=== PATIENT | female | born 1935 | race Two or more races ===

== ENCOUNTER → 2016-06-28 | Outpatient (CLI) | payer MEDICARE ==
[~2016-06-28] MED LIST: ALEN35TA6 PO; ERGO500012 PO; HYDR-963 PO; LEVO25TA4 PO
--- NOTE | 2016-06-28 17:22 | RAD ---
PROCEDURE MRI of the lumbar spine without contrast 06/28/2016 HISTORY Low back pain. History of kyphoplasty 7 months ago. Bilateral leg radiculopathy. TECHNIQUE Unenhanced T1 weighted and T2 weighted sagittal and axial and inversion recovery sagittal images of the lumbar spine were obtained. FINDINGS No previous imaging studies are available for comparison. Minimal S-shaped curvature of the thoracolumbar spine is seen. The patient is status post kyphoplasty type procedure for an old compression fracture involving the L2 vertebral body. Degenerative signal changes are seen involving all of the discs of the lumbar spine. Degenerative signal changes are seen within the marrow surrounding these discs. An acute compression fracture is seen involving the superior endplate of the L4 vertebral body. This vertebral body has lost approximately 10 percent of its height, centrally. No retropulsion of bone fragments into the central spinal canal is seen. No additional compression fracture of the lumbar vertebrae is seen. The conus medullaris is normal in morphology, position, and signal characteristics. The changes of degenerative disc disease are seen throughout the lumbar disc spaces. These consist of mild to moderate generalized disc bulges and degenerative changes involving the facet joints along with mild to moderate ligamentum flavum hypertrophy. These findings when combined result in moderate to severe central spinal canal stenosis at L4-5. Mild central spinal canal stenosis is seen at L5-S1. Mild to moderate left greater than right neural foraminal stenosis is seen at L5-S1. IMPRESSION 1. An acute compression fracture is seen involving the superior endplate of the L4 vertebral body. No retropulsion of bone fragments into the central spinal canal is seen. 2. The changes of degenerative disc disease are seen involving the lumbar spine. These findings result in moderate to severe central spinal canal stenosis at L4-5. Mild central spinal canal stenosis is seen at L5-S1. Mild to moderate left greater than right neural foraminal stenosis is seen at L5-S1. Electronically signed by: Tyler Wilkes MD (Jun 28, 2016 17:21:18)
== END | disposition home or self-care (01) ==
LOC: MRI 15:02
PROVIDERS: ATTEND Family Medicine
DX: M51.36 Other intervertebral disc degeneration, lumbar region (principal); M48.06 Spinal stenosis, lumbar region; M48.56XA Collapsed vertebra, not elsewhere classified, lumbar region, initial encounter for fracture
CPT/HCPCS: 72148

== ENCOUNTER → 2017-01-05 | Outpatient (CLI) | payer MEDICARE ==
[2016-07-01 11:00] VITALS: BP 116/70
[~2017-01-05] MED LIST changes: +CYCL10TA2 PO; -ERGO500012 PO; +ERGO500027 PO; +IOHEXOL 180 MG/ML 10 ML VIAL. ONE; +MELO15TA6 PO; +methylPREDNISolone ACETATE 40 MG/ML VIAL. ONE; +methylPREDNISolone ACETATE 80 MG/ML VIAL. ONE
== END | disposition home or self-care (01) ==
LOC: PNCL 09:49
PROVIDERS: ATTEND Anesthesiology
DX: M51.16 Intervertebral disc disorders with radiculopathy, lumbar region (principal); M48.06 Spinal stenosis, lumbar region; E03.9 Hypothyroidism, unspecified; Z98.51 Tubal ligation status; Z87.39 Personal history of other diseases of the musculoskeletal system and connective tissue; Z86.39 Personal history of other endocrine, nutritional and metabolic disease; Z88.0 Allergy status to penicillin
CPT/HCPCS: 62323; J1030; J1040

== ENCOUNTER → 2017-04-05 | Outpatient (CLI) | payer MEDICARE ==
[2016-07-01 11:00] VITALS: BP 116/70
--- NOTE | 2017-04-05 10:53 | PAIN ---
DATE OF SERVICE: 04/05/2017 PROGRESS NOTE FOR PAIN CLINIC DIAGNOSES: Lumbar radiculopathy with lumbar spinal stenosis and lumbar degenerative disk disease with a compression fracture at L4. HISTORY OF PRESENT ILLNESS: The patient is an 81-year-old female who returns for followup status post lumbar epidural steroid injections x 2. The patient with about 50% improvement overall in the low back and left lower extremity pain. Last visit was 01/05/2017 and the patient did very well after this and also had a kyphoplasty at L4, which was helpful as well but the pain is much improved. She reports getting in and out of the car, walking and changing positions, standing and climbing stairs is better. The patient reports her pain is a 9 on a scale of 10 at its worst, can be as high as a 10 occasionally, about 1 on a scale of 10 today. The patient reports much better with sitting or lying down, does not awaken her from sleep at night. She is doing very well with this and only with standing and walking, she gets pain in the left low back and to the lower extremities was previously. The patient reports it can be constant and unbearable but generally has been much better after her last injection over the past few months. The patient reports no new motor or sensory deficits, no new bowel or bladder incontinence or other complaints. PHYSICAL EXAMINATION: VITAL SIGNS: Today, the patient's blood pressure is 132/91, pulse 69, respirations 18, temperature is 97.8 degrees Fahrenheit, height is 5 feet 2 inches and weight is 151 pounds. GENERAL: The patient is awake, alert, oriented, appropriate and very pleasant demeanor. The patient accompanied by her daughter who served as a bath mix operator for [place] to [place] and vice versa. The patient reports no other complaints. HEENT: Head shows normocephalic and atraumatic. Extraocular movements are intact and symmetrical. Oral cavity, mucous membranes are moist and pink. Dentition is intact. NECK: Shows anterior throat supple without palpable lymphadenopathy noted. Swallow reflex is symmetrical. CHEST: Shows normal on inspection. Breath sounds are clear to auscultation bilaterally. HEART: Shows S1 and S2 clear. ABDOMEN: Soft, nontender and nondistended. No palpable organomegaly. No rebound or guarding demonstrated. BACK: The patient's back shows spine grossly midline. Slight exaggeration of thoracic kyphosis and some mild flattening of lumbar lordotic curvature. Lumbar paraspinous muscle shows symmetrical inspection. No asymmetry and only mildly tender with palpation diffusely throughout. No tenderness over the sacrum or sacroiliac regions. The patient has some tenderness over the left lateral and posterior gluteus, very firm rope-like musculature consistent with trigger point areas of musculature in the gluteus muscle itself but without radiation. Lower extremities show deep tendon reflexes at 2+ in the patellar and 1+ tendo calcaneus tendons. Motor exam is strong with 5/5 dorsiflexion, extension, quadriceps and hamstring flexion and equal. Peripheral pulses are 1+ without edema. Options were discussed with the patient and the patient's daughter and the patient's old chart was reviewed as her current medication regimen updated. Current review of systems updated today as well and we will proceed with a third in series of lumbar epidural steroid injection with fluoroscopic guidance. Risks were again discussed including, but not limited to bleeding, infection, possibility of epidural hematoma, subsequent neurologic compromise, dural puncture, headaches, spinal cord and/or nerve damage, side effects of steroid medication and poor results regarding pain control. The patient understands and wishes to proceed. The patient will return to clinic in approximately 2 weeks for followup. She was counseled to return appointment, activity level and side effects to be aware of. Also, physical therapy will be ordered for the patient to work on strengthening and stretching exercises considerations as well as myofascial release. DIAGNOSIS: Lumbar radiculopathy with lumbar spinal stenosis and lumbar degenerative disk disease. PROCEDURE: Lumbar epidural steroid injection in translaminar approach at the L4-L5 level using C-arm fluoroscopic guidance under sterile prep and drape using local anesthetic. Medication injected is total of 120 mg Depo-Medrol plus 10 mL of preservative-free normal saline, 2 mL of Isovue for contrast. Condition at discharge is stable. The patient tolerated procedure well and had no complications. SHANIQUA AN MD DR: ALISE/ruy JOB#: [id number] / [id number]
== END | disposition home or self-care (01) ==
LOC: PNCL 08:08
PROVIDERS: ATTEND Anesthesiology
DX: M51.16 Intervertebral disc disorders with radiculopathy, lumbar region (principal); S32.049A Unspecified fracture of fourth lumbar vertebra, initial encounter for closed fracture; X58.XXXA Exposure to other specified factors, initial encounter; Y93.89 Activity, other specified; Y92.89 Other specified places as the place of occurrence of the external cause; Y99.8 Other external cause status; E03.9 Hypothyroidism, unspecified; Z87.39 Personal history of other diseases of the musculoskeletal system and connective tissue; Z86.39 Personal history of other endocrine, nutritional and metabolic disease; Z88.0 Allergy status to penicillin
CPT/HCPCS: 62323; J1030; J1040

== ENCOUNTER → 2017-11-10 | Outpatient (CLI) | payer MEDICARE ==
[~2017-11-10] MED LIST changes: -ALEN35TA6 PO; -CYCL10TA2 PO; -ERGO500027 PO; -HYDR-963 PO; +IOHEXOL 180 MG/ML 10 ML VIAL.; -IOHEXOL 180 MG/ML 10 ML VIAL. ONE; -LEVO25TA4 PO; -MELO15TA6 PO; +methylPREDNISolone ACETATE 40 MG/ML VIAL.; -methylPREDNISolone ACETATE 40 MG/ML VIAL. ONE; +methylPREDNISolone ACETATE 80 MG/ML VIAL.; -methylPREDNISolone ACETATE 80 MG/ML VIAL. ONE
== END | disposition home or self-care (01) ==
LOC: PNCL 09:29
DX: M51.16 Intervertebral disc disorders with radiculopathy, lumbar region (principal); M48.061 Spinal stenosis, lumbar region without neurogenic claudication; K21.9 Gastro-esophageal reflux disease without esophagitis; E03.9 Hypothyroidism, unspecified; Z88.0 Allergy status to penicillin; Z90.49 Acquired absence of other specified parts of digestive tract; Z98.51 Tubal ligation status; Z98.890 Other specified postprocedural states
CPT/HCPCS: 62323; J1030; J1040; Q9965

== ENCOUNTER → 2018-07-02 | Outpatient (CLI) | payer MEDICARE ==
[2016-07-01 11:00] VITALS: BP 116/70
[~2018-07-02] MED LIST changes: +ALEN35TA6 PO; +ASPI-630 PO; +ATOR40TA59 PO; +CLOP75TA PO; +CYCL10TA2 PO; +ERGO500027 PO; +FAMO20TA5 PO; +FURO20TA3 PO; +HYDR-3135 PO; -IOHEXOL 180 MG/ML 10 ML VIAL.; +ISOS60TA2 PO; +LEVO100T5 PO; +LEVO25TA4 PO; +LOSA-73 PO; +MELO15TA6 PO; +METO-239 PO; -methylPREDNISolone ACETATE 40 MG/ML VIAL.; -methylPREDNISolone ACETATE 80 MG/ML VIAL.
--- NOTE | 2018-07-02 16:56 | PAIN ---
DATE OF SERVICE: 07/02/2018 PROGRESS NOTE FOR PAIN CLINIC DIAGNOSES: Lumbar radiculopathy with lumbar degenerative disk disease, lumbar spinal stenosis. HISTORY OF PRESENT ILLNESS: The patient an 83-year-old female who returns for followup status post previous lumbar epidural steroid injection, last seen 10/31/2017. The patient did very well with near 100% improvement for about almost 5 months after the injection. The patient reports that she was increased distance walking, doing household activities with greater ease and comfort, traveling. 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 She has now been placed on Plavix. She is now back home with her daughter, seeing her vessel builder later today locally. The patient has not seen a vessel builder in the [place] since the incident and has been since put on Plavix. The patient reports she has felt fairly well, has no chest pain, but the pain in her low back and left leg is significantly increased. She fell while she was in [place] and exacerbated the pain as well and a radicular component in the left lower extremity and as well across the low back. The patient reports the pain is 10 on a scale of 10 at its worst, on average and 0 at its least, but is only with sitting, does not awaken her from sleep every night, but occasionally does. The patient is describing the pain as a tight and tingling into the left foot, constant, becoming more severe, more unbearable especially with walking, posterior gluteus, posterior thigh, posterior calf as well as the lateral thigh and anterior thigh on the left side. The patient reports no new motor or sensory deficits, no new bowel or bladder incontinence, but significant findings of a recent stent placed and Plavix therapy. PHYSICAL EXAMINATION: VITAL SIGNS: The patient's blood pressure 114/59, pulse 69, respirations are 16, temperature is 98.4 degrees Fahrenheit, weight is 149 pounds. GENERAL: The patient is awake, alert, oriented, appropriate, very pleasant demeanor. The patient is accompanied by her daughter, who serves as overedge sewer. HEENT: Shows normocephalic, atraumatic. Extraocular movements are intact and symmetrical. Oral cavity: Mucous membranes are moist and pink. Dentition is intact. NECK: Shows anterior throat supple without palpable lymphadenopathy noted. Swallow reflex symmetrical. CHEST: Shows normal with inspection. Breath sounds clear to auscultation bilaterally. HEART: Shows S1, S2 clear. No murmurs auscultated. ABDOMEN: Soft, obese, nontender, nondistended. No palpable organomegaly is noted. No rebound or guarding demonstrated. BACK: Shows spine grossly in the midline, slightly increased thoracic kyphosis and minor flattening of lumbar lordotic curvature. Lumbar paraspinous muscle shows symmetrical on inspection. On palpation, there is some moderate tenderness in the low lumbar distribution, but only diffusely bilaterally without radiation, without trigger points. The patient has good rotational motion of lumbar spine both laterally as well as extension and flexion without significant pain reported. EXTREMITIES: Lower extremities show deep tendon reflexes 2+ in the patellar, 1+ tendo calcaneus tendons. Motor exam is strong with 5/5 dorsiflexion, extension, quadriceps and hamstring flexion and equal. Peripheral pulses are 1+ posterior tibia. No peripheral edema is noted. PLAN: Options were discussed with the patient and the patient's daughter. The patient's old chart was reviewed as her current medication regimen updated. Current review of systems updated today as well. We will have the patient follow up with the vessel builder here and evaluate for the acceptability of holding the Plavix for 7 days prior to a lumbar epidural steroid injection, discussed with the patient and her daughter that this may not be likely as she is only placed on it about a month ago. They will see the vessel builder later today as noted. We will meantime try tramadol 50 mg every 4-6 hours. The patient was given instruction as well as side effects to be aware of with the medication. We will follow up after Cardiology has had a chance to assess the patient's cardiac status. SHANIQUA AN MD DR: ALISE/ruy JOB#: [id number] / [id number]
== END | disposition home or self-care (01) ==
LOC: PNCL 09:01
PROVIDERS: ATTEND Anesthesiology
DX: M51.16 Intervertebral disc disorders with radiculopathy, lumbar region (principal); M48.061 Spinal stenosis, lumbar region without neurogenic claudication
CPT/HCPCS: G0463

== ENCOUNTER → 2019-11-19 | Outpatient (CLI) | payer MEDICARE ==
[2016-07-01 11:00] VITALS: BP 116/70
[~2019-11-19] MED LIST changes: +ALEN35TA11 PO; -ALEN35TA6 PO; +DENO60DI SQ; +GABA-585 PO; +HYDR-2761 PO; +IOHEXOL 180 MG/ML 10 ML VIAL. ONE; +MULT-658 PO; +RANO500T2 PO; +SPIR25TA5 PO; +TICA90TA PO; +methylPREDNISolone ACETATE 40 MG/ML VIAL. ONE; +methylPREDNISolone ACETATE 80 MG/ML VIAL. ONE
--- NOTE | 2019-11-19 09:46 | PAIN ---
DATE OF SERVICE: 11/19/2019 PROGRESS NOTE FOR PAIN CLINIC DIAGNOSES: Lumbar radiculopathy with lumbar degenerative disk disease, lumbar spinal stenosis. HISTORY OF PRESENT ILLNESS: The patient is an 84-year-old female who returns for followup, last seen 06/2018. The patient had epidural steroid injection at that time. She was on Plavix actually at that time and she has been off the Plavix now, has been started on Brilinta and she has been off that now for 7 days as cleared by her prescribing physician. The patient did very well after epidural steroid injections in the past, near 100% improvement, but has been almost 2 years since she had the injection. The patient reports still significant pain now returning over the past 6 months or so in the low back and especially in the right lower extremity, posterior gluteus, lateral thigh, anterior thigh, medial thigh as well as posterior calf on the right side. The patient reports it is worse with walking, standing, changing positions, rates a 10 on a scale of 10 at all times, average, least and worst, is a 10 today. The patient reports it is sharp, tight, tingling, cramping in the right leg with becoming more constant and severe. The patient did have an MRI scan earlier this month, 10/26/2019 showing severe, worsened central stenosis at L4-L5 and severe new central stenosis at L5-S1 with dorsal arthritis at L4-L5 and L5-S1 as well. The patient reports the pain is worse with walking, standing, changing positions, getting in and out of bed, does not awaken her from sleep over the past few months. The patient reports no new motor or sensory deficits, no new bowel or bladder incontinence, still significant pain in the low back and right lower extremity. PHYSICAL EXAMINATION: VITAL SIGNS: The patient's blood pressure 114/54, pulse 67, respirations 16, temperature 98.0 degrees Fahrenheit, weight is 144 pounds. GENERAL: The patient is awake, alert, oriented, very appropriate demeanor. The patient is accompanied by her daughter who acts as a automotive parts interpreter for Martiniquais to Khmer and vice versa. HEENT: Shows normocephalic, atraumatic. Extraocular movements are intact and symmetrical. Oral cavity: Mucous membranes moist and pink. Dentition is intact. NECK: Shows anterior throat is supple without palpable lymphadenopathy noted. Swallow reflex symmetrical. CHEST: Shows normal on inspection. Breath sounds clear to auscultation bilaterally. HEART: Shows S1, S2 clear. No murmurs auscultated. ABDOMEN: Soft, nontender, nondistended. No palpable organomegaly is noted. No rebound or guarding demonstrated. BACK: Shows spine grossly in the midline. Slight exaggeration of thoracic kyphosis, some minor flattening of the low lumbar distribution is noted as well. The patient has good rotational motion of lumbar spine, both laterally as well as extension and flexion without significant increase in pain. EXTREMITIES: The patient's lower extremities show deep tendon reflexes at 2+ in the patellar, 1+ tendo-calcaneus tendons. Motor exam is strong with dorsiflexion and extension, 5/5. Quadriceps and hamstring flexion as well. Peripheral pulses are 1+ posterior tibia. No peripheral edema is noted bilaterally. PLAN: Options were discussed with the patient and the patient's daughter including conservative medical managements, physical therapies and interventional techniques. She would like to pursue interventional techniques as she has done very well with these in the past. We described a lumbar epidural steroid injection using description as well as anatomical models to describe the procedure. Risks were discussed including but not limited to bleeding, infection, possibility of epidural hematoma, subsequent neurological compromise, dural puncture, headaches, spinal cord and/or nerve damage, side effects of steroid medication and poor results regarding pain control. The patient understands and wished to proceed. The patient will return to clinic in approximately 3 weeks for followup. She was counseled on return appointment, activity level and side effects to be aware of. We will restart her Brilinta tomorrow 11/19 and we will have her follow up as scheduled. DIAGNOSES: Lumbar radiculopathy with lumbar degenerative disk disease, lumbar spinal stenosis. PROCEDURE: Lumbar epidural steroid injection, translaminar approach at the L4-L5 level using C-arm fluoroscopic guidance under sterile prep and drape using local anesthetic. MEDICATION INJECTED: A total of 120 mg Depo-Medrol plus 10 mL of preservative-free normal saline and 2 mL of contrast. CONDITION AT DISCHARGE: Stable. The patient tolerated procedure well, had no complications. SHANIQUA AN MD DR: ALISE/ruy JOB#: [id number] / [id number]
== END | disposition home or self-care (01) ==
LOC: PNCL 08:23
PROVIDERS: ATTEND Anesthesiology
DX: M51.16 Intervertebral disc disorders with radiculopathy, lumbar region (principal); M48.061 Spinal stenosis, lumbar region without neurogenic claudication; Z98.890 Other specified postprocedural states; Z88.0 Allergy status to penicillin
CPT/HCPCS: 62323; J1030; J1040; Q9965

== ENCOUNTER → 2019-12-10 | Outpatient (CLI) | payer MEDICARE ==
[2016-07-01 11:00] VITALS: BP 116/70
--- NOTE | 2019-12-10 09:50 | PAIN ---
DATE OF SERVICE: 12/10/2019 PROGRESS NOTE FOR PAIN CLINIC DIAGNOSES: Lumbar radiculopathy with lumbar degenerative disk disease, lumbar spinal stenosis. HISTORY OF PRESENT ILLNESS: The patient is an 84-year-old female who returns for followup status post lumbar epidural steroid injection x 1. The patient reports approximately 90% improvement, but the pain is returning now over the past few days in the low back, right lower extremity, posterior gluteus, posterior thigh, posterior calf, lateral thigh, anterior thigh, medial thigh and posterior calf as well on the right side. The patient reports it is aching, sharp, shooting, stabbing, worse. The pain is a 9 on a scale of 10 at its worse, the past week, 5 on average, 5 at its least; worse with walking, standing, changing positions, better with sitting or lying down, sleeping well, does not awaken her from sleep at night. The patient reports no new motor or sensory deficits, no new bowel or bladder incontinence or other complaints. Initially, she was doing much better with walking distances, doing household activities with greater ease and comfort, getting up from a seated position with much greater ease as well. The patient's daughter accompanies her today and provides translation and interpretation and reports that she has noticed that she has been getting up and down much easier and much more comfortably over the past several weeks as well. PHYSICAL EXAMINATION: VITAL SIGNS: The patient's blood pressure 113/53, pulse 81, respirations 18, temperature is 98.4 degrees Fahrenheit, height is 5 feet 2 inches, weight is 145 pounds. GENERAL: The patient is awake, alert, oriented, appropriate, very pleasant demeanor. The patient again accompanied by her daughter. HEENT: Shows normocephalic, atraumatic. Extraocular movements are intact and symmetrical. Oral cavity: Mucous membranes moist and pink. Dentition is intact. NECK: Shows anterior throat supple without palpable lymphadenopathy noted. Swallow reflex symmetrical. CHEST: Shows normal on inspection. Breath sounds are clear to auscultation bilaterally. HEART: Shows S1, S2 clear. No murmurs auscultated. ABDOMEN: Soft, nontender, nondistended. No palpable organomegaly is noted. No rebound or guarding demonstrated. BACK: Shows spine grossly in the midline. Normal appearing thoracic kyphosis and some minor flattening of lumbar lordotic curvature. Lumbar paraspinous muscle shows symmetrical on inspection, on palpation shows some moderate tenderness diffusely bilaterally, but only diffusely without significant radiation. The patient has good rotational motion of lumbar spine, both laterally as well as extension and flexion without significant pain. EXTREMITIES: Lower extremities show deep tendon reflexes 2+ in the patellar, 1+ tendo-calcaneus tendons. Motor exam is 5/5 with dorsiflexion, extension, quadriceps and hamstring flexion symmetrical. Peripheral pulses are 1+ posterior tibia. No peripheral edema bilaterally. Options were discussed with the patient. The patient's old chart was reviewed as her current medication regimen updated. Current review of systems updated today as well and we will proceed with a second in a series of lumbar epidural steroid injection today with fluoroscopic guidance. Risks were again discussed including, but not limited to bleeding, infection, possibility of epidural hematoma, subsequent neurological compromise, dural puncture, headaches, spinal cord and/or nerve damage, side effects of steroid medication and poor results regarding pain control. The patient understands and wished to proceed. The patient will return to clinic in approximately 2 weeks for followup. She was counseled on return appointment, activity level and side effects to be aware of. DIAGNOSIS: Lumbar radiculopathy with lumbar degenerative disk disease, lumbar spinal stenosis. PROCEDURE: Lumbar epidural steroid injection, translaminar approach L5-S1 level using C-arm fluoroscopic guidance under sterile prep and drape using local anesthetic. MEDICATION INJECTED: A total of 120 mg Depo-Medrol plus 10 mL preservative-free normal saline and 2 mL of contrast. CONDITION AT DISCHARGE: Stable. The patient tolerated procedure well, had no complications. SHANIQUA AN MD DR: ALISE/ruy JOB#: [id number] / [id number]
== END | disposition home or self-care (01) ==
LOC: PNCL 07:38
PROVIDERS: ATTEND Anesthesiology
DX: M48.061 Spinal stenosis, lumbar region without neurogenic claudication (principal); M51.36 Other intervertebral disc degeneration, lumbar region; K21.9 Gastro-esophageal reflux disease without esophagitis; E03.9 Hypothyroidism, unspecified; Z98.51 Tubal ligation status; Z88.0 Allergy status to penicillin; Z79.899 Other long term (current) drug therapy
CPT/HCPCS: 62323; J1030; J1040; Q9965